=== PATIENT | male | born 1965 | race Caucasian/White ===

== ENCOUNTER 2016-12-17 10:59 | Emergency (ER) | payer BC ==
--- NOTE | 2016-12-18 15:04 | ER ---
DATE SEEN: 12/17/2016 TIME SEEN: The patient was seen at 1118 hours. HISTORY OF PRESENT ILLNESS: This 51-year-old gentleman has a history of rash. He was treated with azithromycin from 11/28/2016 to 12/03/2016 for cough, sore throat, nasal congestion, conjunctivitis. This resolved. He uses CPAP. More recently, in the last several days, he had homemade deer dalton and ate more than usual and wonders if the rash is from jerky. 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 He complains his fingers are swollen (sausage fingers). He has a rash on his back of his shoulders, anterior chest, elbows, hands, and feet. The dorsum of his feet, he has a chronic rash and it comes and goes. He denies recent fever and drinks alcohol, 4 drinks of an ounce and a half each yesterday (this weekend) and he drinks more than 4 days a week. His weight is 300 plus pounds. REVIEW OF SYSTEMS: Denies chest pain, shortness of breath, cough, abdominal discomfort, constipation, blood in the stool, black tarry stool, difficulty passing urine, joint pain, muscle aches, or intraoral lesions. PHYSICAL EXAMINATION: VITAL SIGNS: Blood pressure 146/88, heart rate 117, respirations 20, oxygen saturation 98%. Weight 106.5 kilos, 1.78 m. 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 Uncompromised vision. Pharynx without abnormality. No intraoral lesions. Tissue erythema in the back of his throat which is nonspecific. NECK: No cervical adenopathy. Neck is supple. LUNGS: Clear to auscultation without rales or rhonchi. HEART: S1, S2. No murmur. ABDOMEN: Soft. No guarding. No abdominal discomfort. Moderate increased abdominal girth. Muscular abdomen. EXTREMITIES: Without edema. DERMIS: The patient has dry, macular patchy erythema, right shoulder, right and left upper arms. This is not lacy in character and has spread through his posterior trunk, anterior trunk, and abdominal dermis. He has notable fissuring, dry, cracking skin on his hands, but most notable in the dorsum of his feet with areas of breakdown of skin, a few crusts have been denuded. Mild thickening and induration of the skin in this area. He has moderate swelling in his fingers. Also says he has more difficulty flexing his fingers and are tighter. ASSESSMENT: 1. 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 2. Psoriasis without the scalp involvement. 3. 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 4. Fair amount of stress at work. 5. Ethanolism, he drinks more than or equivalent to 1.5 ounce per drink yesterday for a total of 6 ounces yesterday, and the remainder he drinks 1 to 4 drinks per day also. So this puts him into the category of ethanolism. PLAN: 1. We discussed his rash. Plan to treat him with triamcinolone ointment twice a day. 2. Prednisone to start with 10 mg b.i.d. for 7 days and then remainder as needed. 3. Antibiotic for the rash, potential staph or strep. I was reluctant to make a diagnosis of MRSA at this point. There may be some gram-negative involvement since his feet are involved, so I chose a more aggressive treatment with antibiotic 875 mg b.i.d. and Atarax 25 mg t.i.d. Follow up with doctor in a week if not improved. Also since this is a lifetime rash he has had, consider Dermatology consultation. If worse, see the doctor in next 24 to 72 hours, otherwise follow up in a week. /[id number] [id number]/VENANCIO
== END 2016-12-17 12:10 | disposition home or self-care (01) ==
LOC: FB.ED 10:59
CPT/HCPCS: 99284

== ENCOUNTER 2024-09-22 08:09 | Day surgery (SDC) | payer BC ==
[2024-09-22] MEDS ORDERED: HYDROmorphone 2 MG/ML SDV IV ONE (08:10)
[2024-09-22] MEDS ORDERED: Succinylcholine 200 MG/10 ML MDV IV ONE (08:10)
[2024-09-22] MEDS ORDERED: Lactated Ringers 1,000 ML IV ONE (08:10)
[2024-09-22] MEDS ORDERED: Ondansetron 4 MG/2 ML SDV IVPUSH ONE (08:10)
[2024-09-22] MEDS ORDERED: Rocuronium 100 MG/10 ML MDV IV ONE (08:10)
[2024-09-22] MEDS ORDERED: Dexamethasone 4 MG/ML SDV IV ONE (08:10)
[2024-09-22] MEDS ORDERED: Midazolam 1 MG/ML 2 ML SDV IV ONE (08:10)
[2024-09-22] MEDS ORDERED: Propofol 200 MG/20 ML SDV IV ONE (08:10)
[2024-09-22] MEDS ORDERED: Sugammadex Sodium 200 MG/2 ML VIAL IV ONE (08:10)
[2024-09-22] MEDS ORDERED: fentaNYL 100 MCG/2 ML SDV IV ONE (08:10)
[2024-09-22] MEDS ORDERED: Ketamine 500 mg/10 ML MDV IV ONE (08:10)
[2024-09-22] MEDS ORDERED: Sodium Chloride 0.9% 10 ML Syringe FLUSH PRN (08:30)
[2024-09-22] MEDS: Lactated Ringers 1,000 ML IV SCH (09:38)
[2024-09-22] MEDS: ceFAZolin 2 GM Vial IVPUSH ONE (09:41)
[2024-09-22] MEDS: Bupivacaine 0.5%/EPINEPHrine 1:200,000 30 ML SDV INJECT ONE (10:08)
[2024-09-22 11:36] VITALS: BP 147/92; PULSE 84
== END 2024-09-22 13:47 | disposition home or self-care (01) ==
LOC: FB.SDS 08:09
PROVIDERS: ATTEND Surgery
DX: K80.10 Calculus of gallbladder with chronic cholecystitis without obstruction (principal); I10 Essential (primary) hypertension; E78.5 Hyperlipidemia, unspecified; K21.9 Gastro-esophageal reflux disease without esophagitis; Z87.891 Personal history of nicotine dependence; Z79.899 Other long term (current) drug therapy; Z88.8 Allergy status to other drugs, medicaments and biological substances; Z91.040 Latex allergy status
CPT/HCPCS: 00790; 47562; 88304; J0330; J0690; J1100; J1171; J2250; J2405; J2704; J3010; J3490; J7120